=== PATIENT | male | born 1990 | race Caucasian/White ===

== ENCOUNTER 2016-10-02 01:56 | Emergency (ER) | payer OTHER ==
[~2016-10-02] VITALS: Ht 180.3 cm; Wt 94.8 kg
[~2016-10-02 01:56] MED LIST: MULTTAB58 PO; ONDA4TAB7 SL
[2016-10-02 02:02] VITALS: TEMP 36.8; Ht 180.3 cm; Wt 94.8 kg
[2016-10-02] MEDS ORDERED: LIDOCAINE/EPINEPHRINE 1% 20 ML VIAL INFIL ONE (02:30)
--- NOTE | 2016-10-02 03:10 | EMERGENCY ROOM VISIT NOTE ---
ED Visit Note First contact with patient: 02:06 CHIEF COMPLAINT: Chin laceration HISTORY OF PRESENT ILLNESS: This 26-year-old male patient presents emergency department by private vehicle complaining of a laceration to the chin. The patient states that he was at a bar [place] and fell [place] the stairs. He reports 6/10 pain in the chin. There has been no vomiting. There was no loss of consciousness. The patient does admit to drinking alcohol tonight. He denies any neck pain. He denies any other injuries. There is minimal bleeding. The patient's tetanus shot is up to date. REVIEW OF SYSTEMS: A 6 system review of systems was completed with positives and pertinent negatives listed in the HPI. ALLERGIES: No known drug allergies MEDICATIONS: No chronic medications PMH: No significant past medical history. SOCIAL HISTORY: The patient is from out of town and is visiting friends. He is a smoker and admits to alcohol use. PHYSICAL EXAM: Vital Signs: Reviewed Nurse's notes, vital signs stable. GENERAL : This is a 26-year-old male, in no acute distress, appears to be intoxicated, well-developed, well-nourished. He smells of EtOH. NEURO: GCS 15. The patient is alert and oriented to person place and time. No focal neurological defects. EYES: Pupils are round, equal, and react to light. EOMI. EARS: No hemotympanum. NECK: Supple. No cervical spine tenderness. FACE: No facial bone tenderness or mandibular tenderness. The mouth can open fully. The teeth are well aligned. No loose or chipped teeth. SKIN: There is a 2.5 cm laceration to the underside of the chin. The edges gape apart with traction. There is no active bleeding and no foreign material in the wound. There are no deep structures present. Capillary refill less than two seconds. Normal sensation to light and sharp touch. RADIOGRAPHIC FINDINGS: CT FACIAL: No facial fractures. The paranasal sinuses and mastoid air cells are clear. Soft tissue swelling of the left paracentral pre-mandibular soft tissues. The facial soft tissues are otherwise unremarkable. CT HEAD: No ICH, mass effect or edema. No skull fracture. EMERGENCY DEPARTMENT COURSE: I examined the patient. CT of the head and facial bones were performed and read by stat rad as above. Verbal consent was obtained to perform the procedure. Using sterile technique the wound was cleansed with Betadine. The area was sterilely draped. 3 ml of 1% buffered lidocaine was used to anesthetize the laceration on the face. Once the patient was anesthetized, the wound was copiously irrigated under pressure with sterile saline. The wound was explored and was as described above. The deep structures were repaired using 2 simple interrupted 6-0 Vicryl sutures. The laceration was repaired using 6 simple interrupted 6-0 nylon sutures with the wound edges being well approximated. The patient tolerated the procedure well. Hemostasis was achieved. The area was cleaned with sterile saline and dressed with bacitracin ointment. The patient was discharged home in good condition. DIAGNOSIS: Facial laceration Current/Historical Medications No Active Prescriptions or Reported Meds Allergies Coded Allergies: No Known Allergies (Unverified , 10/02/16) Vital Signs Date Time Temp Pulse Resp B/P Pulse Ox O2 Delivery O2 Flow Rate FiO2 10/02/16 04:14 73 18 118/64 99 10/02/16 04:12 73 18 118/64 99 Room Air 10/02/16 03:17 83 16 94 Room Air 10/02/16 03:17 94 Room Air 10/02/16 02:02 36.8 96 18 137/80 96 Room Air Departure Information Impression Primary Impression: Facial laceration Dispostion Home / Self-Care Condition GOOD Prescriptions No Active Prescriptions or Reported Meds Referrals No Doctor, Assigned (PCP) Patient Instructions [facility] Additional Instructions You have received 6 sutures on your Chin. These sutures are NOT dissolvable and WILL need to be removed by a health care provider in 6-7 days. You can return to the Emergency Department or contact your Primary Care Provider to have the sutures removed. Proper wound care is essential for adequate wound healing and infection prevention. You can shower and clean the wound with soap and water. Do not scour over the wound, pat dry with a towel. Do not submerse the wound (i.e. bathe or dish wash) until the sutures have been removed. You can use an antibiotic ointment with a dressing over the wound for the next 3-4 days. After this time you may leave the wound dry and open to the air. If crust develops over the wound you can use a Q-tip to apply a 1:1 peroxide:water solution to clean the wound. Look for signs of infection of the wound including: increased pain, swelling, foul discharge, streaking, or increased temperature. If any of these are noticed you should return to the Emergency Department for further assessment and treatment. As with any laceration you may have received nerve damage to the surrounding tissues. This damage may or may not be permanent. You should keep the area covered with sunscreen for the first 6 months to 1 year when at risk for exposure to help minimize scarring. You can also use scar reducing creams or Vitamin E oil to help minimize scarring. For pain control, you can use the following [id number] medicines (if >12 yo): - Regular strength (325mg/tab) Tylenol (acetaminophen) 2 tabs every 4-6 hours as needed. Do not exceed 12 tablets in a 24 hour period. Avoid taking more than 4 grams (4000 mg) of Tylenol per day. This includes any other sources of acetaminophen you may take on a regular basis. - Regular strength (200 mg/tab) Advil (ibuprofen) 1-2 tabs every 4-6 hours as needed. Do not exceed a dose of 3200 mg per day. Return to the emergency department if your symptoms worsen despite treatment course outlined above. Problem Qualifiers Primary Impression: Facial laceration Encounter type: initial encounter Qualified Codes: S01.81XA - Laceration without foreign body of other part of head, initial encounter
[2016-10-02 03:17] VITALS: O2SAT 94
[2016-10-02 04:14] VITALS: BP 118/64; PULSE 73; O2SAT 99
--- NOTE | 2016-10-02 06:49 | DIAGNOSTIC IMAGING REPORT ---
HEAD CT NONCONTRAST CT DOSE: 614.27 mGy.cm HISTORY: fell down stairs, head injury TECHNIQUE: Multiaxial CT images of the head were performed without the use of intravenous contrast. Automated exposure control was utilized for this study. Comparison: Head CT 07/23/2012. Findings: The paranasal sinuses and mastoid air cells are clear. The calvarium and skull base are intact. The ventricles and sulci are within normal limits. There is no mass, hematoma, midline shift, or acute infarct. Impression: No acute intracranial abnormality. Electronically signed by: Uday Archibald M.D. 10/02/2016 6:47 AM Dictated Date/Time: 10/02/2016 6:46 AM
--- NOTE | 2016-10-02 07:14 | DIAGNOSTIC IMAGING REPORT ---
MAXILLOFACIAL CT CT DOSE: 682.30 mGy.cm HISTORY: facial injuries TECHNIQUE: Multiaxial CT images of the maxillofacial region were performed and reformatted in the coronal plane without the use of contrast. COMPARISON: None. FINDINGS: The visualized cervical spine, skull base, pterygoid plates, nasal bones, lamina papyracea, orbital floors, mandible, and zygomatic arches are intact. No fractures. The orbits are unremarkable. Left facial and left-sided chin soft tissue swelling. IMPRESSION: No fractures within the maxillofacial region. Electronically signed by: Uday Archibald M.D. 10/02/2016 7:12 AM Dictated Date/Time: 10/02/2016 7:10 AM
== END 2016-10-02 04:15 | disposition home or self-care (01) ==
LOC: C.EDB 01:56 → C.EDA 04:15
DX: S01.81XA Laceration without foreign body of other part of head, initial encounter (principal); W10.9XXA Fall (on) (from) unspecified stairs and steps, initial encounter; F17.200 Nicotine dependence, unspecified, uncomplicated